=== PATIENT | female | born 1980 | race Caucasian/White ===

== ENCOUNTER → 2016-12-08 | Outpatient (CLI) | payer OTHER ==
[~2016-12-08] MED LIST: IBUPROFEN400 MG PO; PHENERGAN 25MG.25 M1 PO; TORADOL10 MG; TYLENOL ES500 M1 PO
[2016-12-08 18:08] LABS: HEMOGLOBIN 13.9 g/dL (12.2-16.2); LYMPH # 1.9 K/mm3 (0.7-4.5); LYMPH % 23.6 % (10-50.0)
[2016-12-08 18:59] LABS: BUN 12 mg/dL (7-18)
[2016-12-08 19:01] LABS: GFR (ESTIMATED) 95 ML/MIN (59-)
== END ==
LOC: LAB 15:24
PROVIDERS: Nurse Practitioner Family
DX: R53.83 Other fatigue (principal); E03.9 Hypothyroidism, unspecified; Z13.220 Encounter for screening for lipoid disorders